=== PATIENT | female | born 1985 ===

== ENCOUNTER 2017-01-11 13:21 | Emergency (ER) | payer BC, OTHER ==
[2017-01-11 13:26] VITALS: PULSE 84; TEMP 98.3
[2017-01-11] MEDS ORDERED: Sodium Chloride 0.9% 1,000 ML IV STA (14:46)
[2017-01-11 15:05] LABS: BASO % 0.5 % (0.0-2.0); EOS # 0.4 K/uL (0.0-0.7); EOS % 6.1 % (0.0-4.0); HEMATOCRIT 39.7 % (34.0-47.0); LYMPH # 2.5 K/uL (1.0-4.3); LYMPH % 42.6 % (20.0-40.0); MEAN CELL VOLUME 92.2 fl (81.0-99.0); MEAN CORPUSCULAR HEMOGLOBIN 30.9 pg (27.0-31.0); MEAN CORPUSCULAR HGB CONC 33.5 g/dL (33.0-37.0); MEAN PLATELET VOLUME 8.5 fl (7.2-11.7); MONO # 0.4 K/uL (0.0-0.8); NEUT # 2.6 K/uL (1.8-7.0); NEUT % 44.8 % (50.0-75.0); NRBC % 0.1 % (0.0-0.0); RED CELL DISTRIBUTION WIDTH 12.8 % (11.5-14.5); WHITE BLOOD COUNT 5.9 K/uL (4.8-10.8)
[2017-01-11 15:19] LABS: ALB/GLOB RATIO 1.1 (1.0-2.1); ALKALINE PHOSPHATASE 69 U/L (38-126); ALT/SGPT 23 U/L (9-52); AST/SGOT 25 U/L (14-36); BILIRUBIN,TOTAL 0.4 mg/dl (0.2-1.3); BLOOD UREA NITROGEN 13 mg/dl (7-17); CALCIUM 9.8 mg/dL (8.4-10.2); CARBON DIOXIDE 26 mmol/L (22-30); CHLORIDE 100 mmol/L (98-107); GFR AFRICAN-AMERICAN > 60; GLUCOSE,RANDOM 96 mg/dL (65-105); POTASSIUM 3.6 MMOL/L (3.6-5.0); SODIUM 141 mmol/l (132-148); TOTAL PROTEIN 7.8 G/DL (6.3-8.2)
[2017-01-11 18:22] VITALS: O2SAT 98
--- NOTE | 2017-01-11 22:01 | US ---
EXAM: US Pelvis, Transvaginal CLINICAL HISTORY: 31 years old, female; Pain; Pelvic pain; Additional info: Miscarriage 2 weeks ago, feverish TECHNIQUE: Real-time transvaginal pelvic ultrasound (complete) with image documentation. Transvaginal imaging was used for better evaluation of the endometrium and adnexa. EXAM DATE/TIME: 01/11/2017 4:17 PM COMPARISON: No relevant prior studies available. FINDINGS: Uterus: Measures 8.5 x 3.9 x 5.9 cm. No intrauterine gestational sac is seen. Endometrial stripe appears abnormally heterogeneous. It measures 1.05 cm in maximum thickness, which is within normal limits. No evidence of significant increased vascularity in the endometrial stripe on color imaging. Cervix appears closed. Right ovary: Could not be visualized. Left ovary: Within normal limits in appearance. Measures 2.8 x 1.8 x 2.1 cm. Flow seen in the left ovary on color and Doppler imaging, with no evidence of torsion. IMPRESSION: Endometrial stripe appears heterogeneous, without evidence of abnormal thickening or abnormal increased vascularity. This constellation of findings is most suggestive of blood products/clot in the endometrial canal, although it is difficult to entirely rule out retained products of conception. Recommend clinical correlation. Right ovary could not be visualized.
--- NOTE | 2017-01-11 22:52 | ED PDOC ---
- Laboratory Results Result Diagrams: 01/11/17 15:00 01/11/17 15:00 - ECG O2 Sat by Pulse Oximetry: 98 - Progress ED Course And Treament: Case endorsed to loan underwriter from [employer] ESPINO pending labs, u/s, re-eval Patient states she had D&C procedure last week; has follow up appt at clinic next week. Patient denies pelvic pain, only mild spotting currently. PAtient advised to follow up at appointment as scheduled Patient states headache improved, resting comfortably. Patient advised to follow up PMD 2-[address] head for complaints of headache; declines at this time as headache has improved since arrival to ED. Advised Tylenol PRN headache. REturn to ED for worsening/concerning symptoms. Disposition - Clinical Impression Clinical Impression: Headache - POA Present On Arrival: None - Disposition Disposition: Routine/Home Disposition Time: 22:52 Condition: IMPROVED Instructions: Acute Headache (ED) Print Language: [email or web address]
[2017-01-11 22:53] VITALS: BP 136/92; RESP 67
--- NOTE | 2017-01-12 20:27 | CARD ---
APPROVED REPORT EKG Measurement Heart [id number] <Conclusion> Normal sinus rhythm with sinus arrhythmia Normal ECG
--- NOTE | 2017-01-22 19:22 | ED PDOC ---
HPI: General Adult Time Seen by Provider: 01/11/17 13:26 Chief Complaint (Nursing): Dizziness/Lightheaded Chief Complaint (Provider): Not feeling well, dizziness History Per: Patient History/Exam Limitations: no limitations Onset/Duration Of Symptoms: Days Have you had recent travel within the past 21 days to any of the following countries: [place], [place], [place] or [place]?: No Additional Complaint(s): Pt states she was concerned about her BP. No head injuries. Denies N/V/D. Pt states she feels weak. Past Medical History Reviewed: Historical Data, Nursing Documentation, Vital Signs Vital Signs: Last Vital Signs Temp 98.3 F 01/11/17 13:23 Pulse 84 01/11/17 18:21 Resp 67 H 01/11/17 22:53 BP 136/92 H 01/11/17 22:53 Pulse Ox 98 01/11/17 22:53 - Medical History PMH: HTN - Family History Family History: States: Unknown Family Hx - Immunization History Hx Tetanus Toxoid Vaccination: No Hx Influenza Vaccination: No Hx Pneumococcal Vaccination: No - Home Medications Home Medications: Ambulatory Orders Medication Instructions Recorded hydroCHLOROthiazide [Microzide] 12.5 mg PO DAILY #30 cap 10/12/16 - Allergies Allergies/Adverse Reactions: Allergies Allergy/AdvReac Type Severity Reaction Status Date / Time No Known Allergies Allergy Verified 10/12/16 15:30 Review of Systems ROS Statement: Except As Marked, All Systems Reviewed And Found Negative Constitutional: Positive for: Weakness Neurological: Positive for: Dizziness Physical Exam - Reviewed Nursing Documentation Reviewed: Yes Vital Signs Reviewed: Yes - Physical Exam Appears: Positive for: Well, Non-toxic, No Acute Distress Head Exam: Positive for: ATRAUMATIC, NORMAL INSPECTION, NORMOCEPHALIC Skin: Positive for: Normal Color, Warm, DRY Eye Exam: Positive for: EOMI, Normal appearance, PERRL ENT: Positive for: Normal ENT Inspection Neck: Positive for: Normal, Painless ROM Cardiovascular/Chest: Positive for: Regular Rate, Rhythm Respiratory: Positive for: CNT, Normal Breath Sounds Gastrointestinal/Abdominal: Positive for: Normal Exam, Bowel Sounds, Soft Back: Positive for: Normal Inspection Extremity: Positive for: Normal ROM Neurologic/Psych: Positive for: Alert, Oriented - Laboratory Results Result Diagrams: 01/11/17 15:00 01/11/17 15:00 - ECG O2 Sat by Pulse Oximetry: 98 Medical Decision Making Medical Decision Making: Preg (+) CT scan of the head declined. Endorsed pending US. Disposition - Clinical Impression Clinical Impression: Dizziness - Patient ED Disposition Is Patient to be Admitted: Transfer of Care - Disposition Referrals: [facility] [Outside] Disposition: Routine/Home Disposition Time: 22:52 Condition: IMPROVED Instructions: Acute Headache (ED) Forms: [facility] ED School/Work Excuse Print Language: BRITISH - POA Present On Arrival: None
== END 2017-01-11 22:55 | disposition home or self-care (01) ==
LOC: H.ER 13:21
DX: R51 Headache (principal)
CPT/HCPCS: 76830; 80053; 81025; 84702; 85025; 93005; 99285; J7040